=== PATIENT | female | born 1970 | race Caucasian/White ===

== ENCOUNTER 2020-02-11 18:58 | Emergency (ER) | payer MEDICAID ==
[~2020-02-11] VITALS: Ht 147.3 cm; Wt 56.7 kg
[2020-02-11 19:08] VITALS: BP 106/66
--- NOTE | 2020-02-11 19:14 | NUR ---
PT AMBULATED TO RESTROOM TO PROVIDE URINE SAMPLE.
--- NOTE | 2020-02-11 19:16 | NUR ---
49 year old female coming in for c/o urinary burning x 2 days. states that she has seen PCP and was told she has UTI. denies hematuria. denies any other pain. denies other s/sx. denies any injury or trauma. denies pmhx. nkda.
[2020-02-11] MEDS ORDERED: KETOROLAC 30 MG/ML VIAL IM ONE (19:40)
[2020-02-11] MEDS ORDERED: cefTRIAXone 1,000 MG in LIDOCAINE MPF 1% 2.1 ML IM ONE (20:00)
[2020-02-11] MEDS ORDERED: cefTRIAXone 1,000 MG VIAL ONE (20:05)
[2020-02-11] MEDS ORDERED: LIDOCAINE MPF 1% 5 ML ONE (20:05)
[2020-02-11 20:18] VITALS: BP 106/66
--- NOTE | 2020-02-11 20:19 | NUR ---
Patient discharged with v/s stable. Written and verbal after care instructions given and explained. Patient alert, oriented and verbalized understanding of instructions. Ambulatory with steady gait. All questions addressed prior to discharge. ID band removed. Patient advised to follow up with PMD. Rx of macrobid, naproxen given. Patient educated on indication of medication including possible reaction and side effects. Opportunity to ask questions provided and answered.
== END 2020-02-11 20:19 | disposition home or self-care (01) ==
LOC: MED 18:58
DX: N39.0 Urinary tract infection, site not specified (principal); M72.2 Plantar fascial fibromatosis
CPT/HCPCS: 81002; 82948; 96372; 99284; J0696; J1885; J2001

== ENCOUNTER 2020-04-12 17:47 | Emergency (ER) | payer MEDICAID ==
[~2020-04-12] VITALS: Ht 149.9 cm; Wt 56.7 kg
[2020-04-12 17:53] VITALS: BP 100/61
--- NOTE | 2020-04-12 18:51 | NUR ---
PT ARRIVED TO ROOM BED 6
--- NOTE | 2020-04-12 18:55 | NUR ---
49 YEAR OLD FEMALE COMPLAINS OF LOWER BACK PAIN SINCE YESTERDAY. PT DENIES ANY TRAUMA, ONLY PROVOKED WHEN MOVEMENT OCCURS. PT DENIES ANY PROBLEMS WITH URINATION OR DEFECATION. PT AOX4, BREATHING EVEN AND UNLABORED, SKIN WARM AND DRY. BED IN LOWEST POSITION, LOCKED, BED RAIL UPX1. PMH - DENIES ALLERGIES - NKA
[2020-04-12] MEDS ORDERED: KETOROLAC 60 MG/2 ML VIAL IM ONE (19:05)
--- NOTE | 2020-04-12 19:15 | NUR ---
REPORT RECEIVED FROM LUCIA WILSON FOR CONTINUITY OF CARE
[2020-04-12 20:12] LABS: ANION GAP 10.9 (8-16); CARBON DIOXIDE 29.8 mmol/L (21-32); CREATININE 0.9 mg/dL (0.6-1.3); POTASSIUM 3.7 mmol/L (3.5-5.1)
[2020-04-12 20:12] LABS: APPEARANCE,URINE CLEAR (CLEAR); BILIRUBIN,URINE NEGATIVE (NEGATIVE); BLOOD, URINE 1+ (NEGATIVE); COLOR,URINE YELLOW (YELLOW); LEUKOCYTE ESTERASE ,URINE NEGATIVE (NEGATIVE); NITRITE, URINE NEGATIVE (NEGATIVE); PH,URINE 6.5 (5.0-9.0); UGLUCOSE 1+ (NEGATIVE)
[2020-04-12 20:18] LABS: WBC,URINE 0-5 /HPF (0-5)
--- NOTE | 2020-04-12 20:18 | NUR ---
Dr. Kamara examining patient.
[2020-04-12 21:03] VITALS: BP 100/61
--- NOTE | 2020-04-12 21:03 | NUR ---
Patient discharged with v/s stable. Written and verbal after care instructions given and explained. Patient alert, oriented and verbalized understanding of instructions. Ambulatory with steady gait. All questions addressed prior to discharge. ID band removed. Patient advised to follow up with PMD. Rx of FLEXERIL AND NAPROSYN given. Patient educated on indication of medication including possible reaction and side effects. Opportunity to ask questions provided and answered.
== END 2020-04-12 21:03 | disposition home or self-care (01) ==
LOC: MED 17:47
DX: M79.10 Myalgia, unspecified site (principal); M54.6 Pain in thoracic spine; R05 Cough
CPT/HCPCS: 36415; 71045; 80048; 81001; 81025; 87086; 96372; 99284; J1885

== ENCOUNTER 2020-08-31 11:29 | Emergency (ER) | payer MEDICAID ==
[~2020-08-31] VITALS: Ht 152.4 cm; Wt 54.4 kg
[2020-08-31 11:34] VITALS: BP 111/63
[2020-08-31] MEDS ORDERED: FAMOTIDINE 20 MG TAB PO ONE (12:20)
[2020-08-31] MEDS ORDERED: KETOROLAC 60 MG/2 ML VIAL IM ONE (12:20)
[2020-08-31 12:36] LABS: BASOPHILS % (AUTO) 0.5 % (0.0-2.0); EOSINOPHILS % (AUTO) 0.8 % (0.0-4.0); HEMATOCRIT 33.3 % (36-48); HEMOGLOBIN 11.1 g/dL (12.0-16.0); LYMPHOCYTES # (AUTO) 1.2 K/uL (2.5-16.5); MEAN CORPUSCULAR HEMOGLOBIN 30 pg (27-31); MEAN CORPUSCULAR HGB CONC 33 g/dL (33-37); MEAN CORPUSCULAR VOLUME 88.9 fL (80-94); MONOCYTES # (AUTO) 0.4 K/uL (0.8-1.0); MONOCYTES % (AUTO) 8.7 % (1.7-9.3); NEUTROPHILS # (AUTO) 3.3 K/uL (1.8-7.7); PLATELET COUNT (AUTO) 256 K/uL (140-450); RED BLOOD CELL COUNT(AUTO) 3.74 MIL/uL (4.20-5.40); RED CELL DISTRIBUTION WIDTH 12.7 % (11.6-13.7); WHITE BLOOD COUNT (AUTO) 5.1 K/uL (4.8-10.8)
[2020-08-31 12:37] LABS: APPEARANCE,URINE CLOUDY (CLEAR); BILIRUBIN,URINE NEGATIVE (NEGATIVE); BLOOD, URINE 3+ (NEGATIVE); COLOR,URINE YELLOW (YELLOW); LEUKOCYTE ESTERASE ,URINE NEGATIVE (NEGATIVE); NITRITE, URINE NEGATIVE (NEGATIVE); PH,URINE 5.5 (5.0-9.0); UGLUCOSE NEGATIVE (NEGATIVE)
[2020-08-31 12:49] LABS: ALBUMIN 3.7 g/dL (3.4-5.0); ANION GAP 10.4 (8-16); CARBON DIOXIDE 26.2 mmol/L (21-32); CREATININE 0.5 mg/dL (0.6-1.3); POTASSIUM 3.6 mmol/L (3.5-5.1); TOTAL BILIRUBIN 0.4 mg/dL (0.0-1.0)
[2020-08-31 13:13] LABS: RBC,URINE >100 /HPF (0-5); WBC,URINE 0-5 /HPF (0-5)
[2020-08-31] MEDS ORDERED: FAMO40TA12 PO (13:43)
[2020-08-31 14:20] VITALS: BP 108/50
== END 2020-08-31 14:20 | disposition home or self-care (01) ==
LOC: MED 11:29
DX: K29.70 Gastritis, unspecified, without bleeding (principal); K59.09 Other constipation; Z79.899 Other long term (current) drug therapy; Z98.890 Other specified postprocedural states
CPT/HCPCS: 36415; 74176; 80053; 81001; 81025; 83690; 85025; 96372; 99284; J1885

== ENCOUNTER 2022-11-27 10:33 | Emergency (ER) | payer BC, MEDICAID ==
[~2022-11-27] VITALS: Ht 142.2 cm; Wt 50.8 kg
[~2022-11-27 10:33] MED LIST: FAMO40TA12 PO
[2022-11-27 11:08] VITALS: BP 94/67; PULSE 70; RESP 16; TEMP 97.8
--- NOTE | 2022-11-27 11:21 | NUR ---
PT AMBULATED TO BED 4 WITH STEADY GAIT
--- NOTE | 2022-11-27 11:43 | NUR ---
52 YO F C/O NON-RADIATING LUQ PAIN X 3 DAYS. BURNING W/URINATION X 2 DAYS. PT DENIES N,V,D,C, FEVER, CHILLS, FLU SYMPTOMS, INJURY, SOB, CP. SKIN DRY/INTACT/PINK. PT AOX4, NAD NOTED, SAFETY MAINTAINED. HX: DENIES NKA
[2022-11-27] MEDS ORDERED: ALUMINUM HYD/MAG/SIMETHICONE 30 ML UDC PO ONE (11:50)
[2022-11-27] MEDS ORDERED: FAMOTIDINE 20 MG TAB PO ONE (11:50)
[2022-11-27 12:06] LABS: BASOPHILS % (AUTO) 0.9 % (0.0-2.0); EOSINOPHILS % (AUTO) 0.3 % (0.0-4.0); HEMATOCRIT 37.2 % (36-48); HEMOGLOBIN 12.7 g/dL (12.0-16.0); LYMPHOCYTES # (AUTO) 1.6 K/uL (2.5-16.5); LYMPHOCYTES % (AUTO) 31.8 % (20.5-51.1); MEAN CORPUSCULAR HEMOGLOBIN 30 pg (27-31); MEAN CORPUSCULAR HGB CONC 34 g/dL (33-37); MEAN CORPUSCULAR VOLUME 88.4 fL (80-94); MONOCYTES # (AUTO) 0.5 K/uL (0.8-1.0); MONOCYTES % (AUTO) 9.9 % (1.7-9.3); NEUTROPHILS % (AUTO) 57.1 % (42.2-75.2); PLATELET COUNT (AUTO) 243 K/uL (140-450); RED BLOOD CELL COUNT(AUTO) 4.21 MIL/uL (4.20-5.40); RED CELL DISTRIBUTION WIDTH 13.8 % (11.6-13.7); WHITE BLOOD COUNT (AUTO) 5.2 K/uL (4.8-10.8)
[2022-11-27 12:16] LABS: ALBUMIN 3.8 g/dL (3.4-5.0); ANION GAP 12.5 (8-16); CARBON DIOXIDE 26.3 mmol/L (21-32); CREATININE 0.5 mg/dL (0.6-1.3); POTASSIUM 3.8 mmol/L (3.5-5.1); TOTAL BILIRUBIN 0.5 mg/dL (0.0-1.0)
[2022-11-27] MEDS ORDERED: FAMO-92 PO (12:50)
[2022-11-27] MEDS ORDERED: ALUM355S5 PO (12:50)
--- NOTE | 2022-11-27 13:01 | NUR ---
Patient discharged with v/s stable. Written and verbal after care instructions given and explained. Patient alert, oriented and verbalized understanding of instructions. Ambulatory with steady gait. All questions addressed prior to discharge. ID band removed. Patient advised to follow up with PMD. Rx of MAG HYDROX/AK HYDROX/SIMETH,FAMOTIDINE given. Opportunity to ask questions provided and answered.
== END 2022-11-27 13:01 | disposition home or self-care (01) ==
LOC: MED 10:33
DX: K29.70 Gastritis, unspecified, without bleeding (principal); K21.9 Gastro-esophageal reflux disease without esophagitis; Z79.899 Other long term (current) drug therapy; Z98.890 Other specified postprocedural states
CPT/HCPCS: 36415; 80053; 81002; 83690; 85025; 99283